=== PATIENT | female | born 1945 | race Caucasian/White ===

== ENCOUNTER → 2019-04-16 | Day surgery (SDC) | payer OTHER ==
[~2019-04-16] VITALS: Ht 165.1 cm; Wt 97.1 kg
[~2019-04-16] MED LIST: CALCIUM500 MG PO; DUREZOL5 ML OPHTHALMIC; GABAPENTIN 100100 MG PO; GLIPIZIDE 10 MG10 MG PO; LIPITOR 40 MG T40 M1 PO; LISINOPRIL-HCT1 EACH PO; MIRTAZAPINE45 MG PO; NEURONTIN 300300 M1 PO; NORCO 10-325 T1 EACH PO; OMEPRAZOLE40 MG PO; POTASSIUM CITR10 ME1 PO
[2019-04-16 08:20] VITALS: BP 110/52
--- NOTE | 2019-04-20 06:18 | O ---
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 PROCEDURE: Enucleation of left eye with implantation of 18 mm Medpor sphere with muscles attached, conjunctivoplasty, temporary tarsorrhaphy. SURGEON: Lazaro Curtis MD FILTERATION OPERATOR: None. ANESTHESIA: General. COMPLICATIONS: None. INDICATIONS FOR SURGERY: This pleasant 73-year-old woman has a blind painful, irreversibly blinded left eye. She presents today for removal of the eye for pain control with reconstruction of the socket. Informed consent was obtained to include but not limited to the potential risk for loss of vision, bleeding, infection, failure to improve the problem, and the potential need for further surgery or treatment. DESCRIPTION OF PROCEDURE: The patient was taken to the operating room where general anesthesia was administered. The left socket was then anesthetized with Xylocaine with epinephrine mixed with Marcaine and Wydase. An aliquot was administered in the retrobulbar space, an aliquot was administered subconjunctivally anteriorly, and an aliquot was administered on the left upper and lower lid margins anticipating a temporary tarsorrhaphy. The patient was subsequently prepped and draped in the usual sterile fashion. A moistened sponge was placed on the right eye, following which a lid speculum was placed on the left. A 360-degree conjunctival peritomy was undertaken. It was most challenging laterally in the area of a prior surgical event. As much of the conjunctiva, however, that could be salvaged as it was from the underlying episclera and globe. The oblique quadrants were then bluntly dissected with a Mann scissor. The lateral rectus muscle was then isolated on a muscle hook and cleaned of its surrounding connective tissue. A 5-[address] [address] OPERATIVE REPORT Name: MIAH LBOOM Maranda Room #: REG [facility].R.#: [id number] Admission: 04/16/19 Attend Phys: Lazaro Curtis MD Discharge: Date of : 47 Report #: [id number] suture was then passed through its insertion with locking bites at each margin. The muscle was then transected from the globe and then dissected back into the orbit. The inferior medial and superior rectus muscles were similarly isolated and tagged with 5-0 Vicryl sutures. The oblique muscles were isolated and just cut from their attachment to the globe. The optic nerve was then clamped with a hemostat for 3 minutes. It was released and then reclamped for 3 more minutes. It was then released and clamped one more time for 3 minutes. The optic nerve was then cut following which minimal bleeding ensued. A 20 mm sizing sphere just barely fit within posterior tenons, so the decision was made to use an 18 mm implant. An 18 mm Medpor sphere was then vacuum aspirated in antibiotic irrigation solution and subsequently reposited behind posterior tenons with an easy glide introducer. Posterior tenons were then closed over the implant with interrupted buried 5-0 Vicryl sutures. The muscles were then attached to the implant with interrupted 5-0 Vicryl sutures drawing the medial and lateral rectus muscles to each other and then the superior and inferior rectus muscles to the medial and lateral rectus muscles. Anterior tenons were then closed with interrupted 5-0 Vicryl sutures. The conjunctiva was then deficient to close at this point. A conjunctivoplasty was performed mobilizing tissue from the superotemporal bulbar conjunctivae. Hemostasis was then re-achieved. The conjunctiva was subsequently rotated into position and secured with a running 6-0 Vicryl suture. Erythromycin ointment was then instilled in the socket followed by medium size conformer. A temporary tarsorrhaphy was then fashioned from a short section of IV tubing and a double armed 5-0 nylon suture passed. The eye was then dressed with Telfa pad followed by 2 eye patches were held in place with silk tape and Mastisol. The patient was subsequently transported to the recovery area having tolerated the procedure well with no anesthetic or operative complications being noted. <ELECTRONICALLY SIGNED> By: Lazaro Curtis MD 04/20/19 0618 [id number] Lazaro Curtis MD /nt
--- NOTE | 2019-04-20 16:06 | PATH ---
[facility] [address] [place] [address] PATHOLOGY RPT PROCEDURE Name: CAMILLE DANIEL Room #: [place] [facility] [place].R.#: [id number] Admission: 04/16/19 Date of : 47 Discharge: Report #: [id number] Path Case #: [id number] [facility] Accession Number: [id number] . 01 Material submitted: . eye - LEFT EYE,SUTURE PETTY LATERAL RECTUS INSERTION. Modifiers: left . 01 Clinical history: . Blind painful eye. . 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 - Fibrosis, dystrophic calcification along with bone formation of the posterior chamber, history of blind painful eye. (IUV:pit; 04/20/2019) QTP 04/20/2019 1508 Local . 02 Electronically signed: . Radha Parson MD, Pathologist NPI- [id number] . 01 Gross description: . Received in formalin labeled "Camille Daniel, left eye" and oriented on the problem specimen form as "suture petty lateral rectus insertion" is an eye enucleation specimen measuring 2.4 x 2.4 x 2.2 cm. There is a scant amount of optic nerve present. The specimen is serially sectioned from lateral to medial to reveal hemorrhagic globe contents without definitive lesions. The specimen is entirely submitted sequentially from lateral to medial in cassettes A1-A6. [place] [place] 04/19/2019[place] [facility] 04/19/2019 0956 Local . 02 Pathologist provided ICD-10: Z86.69 . 02 CPT . 093575 Specimen Comment: A courtesy copy of this report has been sent to [phone] Specimen Comment: Report sent to Performed at: [address] [id number] MD Praveen Kothari MD Phone: [phone] Performed at: [address] [id number] [address] [address] PATHOLOGY RPT PROCEDURE Name: CAMILLE DANIEL Room #: [place] [facility] [place].R.#: [id number] Admission: 04/16/19 Date of : 47 Discharge: Report #: [id number] Path Case #: [id number] MD Radha Parson MD Phone: [phone]
== END | disposition home or self-care (01) ==
LOC: OR 06:41
DX: H54.40 Blindness, one eye, unspecified eye (principal); H11.242 Scarring of conjunctiva, left eye; I10 Essential (primary) hypertension; E11.9 Type 2 diabetes mellitus without complications; E78.5 Hyperlipidemia, unspecified; K21.9 Gastro-esophageal reflux disease without esophagitis; F17.210 Nicotine dependence, cigarettes, uncomplicated; Z98.41 Cataract extraction status, right eye; Z98.42 Cataract extraction status, left eye; Z90.49 Acquired absence of other specified parts of digestive tract; Z90.710 Acquired absence of both cervix and uterus; Z98.890 Other specified postprocedural states; Z79.899 Other long term (current) drug therapy; Z86.69 Personal history of other diseases of the nervous system and sense organs
CPT/HCPCS: 50010; 50101; 50386; 50398; 51636; 51854; 53500; 56527; 56528; 56531; 62110; 62900; 70005

== ENCOUNTER → 2020-01-19 | Outpatient (CLI) | payer OTHER ==
[2020-01-19 10:18] LABS: CREATININE 0.8 mg/dL (0.6-1.0)
== END ==
LOC: MRI 08:48
PROVIDERS: ATTEND Ophthalmology
DX: I67.89 Other cerebrovascular disease (principal); H57.12 Ocular pain, left eye; Z90.01 Acquired absence of eye